=== PATIENT | female | born 1940 | race Caucasian/White ===

== ENCOUNTER → 2025-01-16 15:26 | Outpatient (BNVA) | payer MEDICARE, OTHER, SELFPAY | PROVIDERS: Visit Provider Podiatrist Foot & Ankle Surgery | DX: E11.40 Type 2 diabetes mellitus with diabetic neuropathy, unspecified (principal); L60.3 Nail dystrophy; I73.9 Peripheral vascular disease, unspecified; Z79.84 Long term (current) use of oral hypoglycemic drugs | CPT/HCPCS: 11721; 99203 ==

== ENCOUNTER 2025-05-11 11:26 | Emergency (ER) | payer MEDICARE, BC, SELFPAY ==
--- OUTSIDE RECORDS SUMMARY | 2025-05-11 11:37 | XMS_ITS | Clinical Summary ---
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 Name Role Phone Unavailable Primary Care Provider Unavailabl e Encounters Date Type Department Care Team Description 04/21/2025 Orders Only [facility] Admitting [address] [facility] [address] [place] [address] Zeinab Wang FNP Encounter for screening mammogram for malignant neoplasm of breast (Primary Dx) 04/17/2025 Orders Only [facility] [address] [facility] [address] [place] [address] Zeinab Wang FNP Encounter for screening mammogram for malignant neoplasm of breast (Primary Dx) from Last 3 Months Social History Tobacco Use Types Packs/Day Years Used Date Smoking Tobacco: Never Assessed Comments Unknown Sex and Gender Information Value Date Recorded Sex Assigned at Not on file Legal Sex Female 8:35 PM [employer] Gender Identity Not on file Sexual Orientation Not on file Plan of Treatment Health Maintenance Due Date Last Done Comments DTAP/TDAP/TD VACCINES (1 - Tdap) 1957 PNEUMOCOCCAL VACCINE 50+ YEARS (1 of 1 - PCV) 08/08/18 89 ZOSTER VACCINE (1 of 2) 1988 OSTEOPOROSIS SCREENING 2003 RSV VACCINE (60+ or ) (1 - 1-dose 75+ series) 2013 INFLUENZA VACCINE (#1) 2025
--- OUTSIDE RECORDS SUMMARY | 2025-05-11 11:37 | XMS_ITS | Data Portability ---
Author Organization [place] [facility] [place], ADMIN Address [address] [place] [address] Care Team Providers Care Cinder Pitman Name Role Phone [facility] Primary Care Provider [phone] Assessment Encounter Date Assessment Date Assessment LastModified by Organization Details LastModified Time 01/14/2025 01/14/2025 84-year-old isaiah joseph presents to clinic for hospital follow-up. Patient was admitted 12/16/2024 and discharged 12/20/2024. Patient was admitted with chief complaint of nausea, vomiting, generalized weakness and abdominal pain. Lab studies 12/17/2024 revealed alkaline phosphatase 127, AST 238, ALT 241, bilirubin total 5.3, albumin 3.1, lipase 59 CT abdomen/pelvis 12/17/2024: Suggestion of mild circumferential mucosal thickening within the transverse colon. This may be part due to lack of distention. Diverticulosis without diverticulitis. Sludge and/or stones within the dependent gallbladder. Suggestion of nodular thickening along the lateral aspect of the gallbladder wall. Indeterminate 5 mm low-density lesion within the left of the liver. This could potentially represent a cyst ERCP 12/17/2024: Erythematous nodule measuring approximately 10 to 12 mm were found in the second portion duodenum. CBD measures 7 to 9 mm. Filling defects were identified in the distal CBD consistent with choledocholithiasis versus pneumobilia. A total of 3 black stones were removed from the CBD. 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 Main pancreatic duct was not cannulated nor imaged Today patient reports loose stools since having her gallbladder removed. She reports multiple loose stools per day. She denies any treatment for her bowel movement. I advised patient to start Metamucil 1 tablespoon in 8 ounces water daily. She states overall she is feeling better after her CBD stent placement. She denies abdominal pain, nausea, vomiting. Will schedule ERCP with stent removal in 2 weeks. Will also order CMP, amylase and lipase. Impression: 1. Status post ERCP with CBD stent placement 12/17/2024 secondary to obstructive jaundice and choledocholithiasis 2. Duodenal nodule, pathology revealed peptic type surface changes and dilated lymphatics. Negative for dysplasia or malignancy 3. Status postcholecystectomy 12/19/[address] Nayak 4. Postcholecystectomy diarrhea 5. Other medical issues: Diabetes mellitus, hypertension, hyperlipidemia, thyroid cancer status post thyroidectomy Recommendations: 1. Schedule ERCP with CBD stent removal 2. Order CMP, amylase, lipase 3. Start metamucil 1 tbsp in 8oz water daily 4. Low FODMAP diet 5. Follow up in GI clinic 2 weeks post ERCP [email or web address] Not available 01/15/2025 09:21:10 02/14/2025 02/14/2025 84-year-old isaiah joseph presents to clinic for follow-up after ERCP with CBD stent removal. Patient reports she is doing well. She denies abdominal pain, nausea, vomiting, fever or chills. She did complete her postop antibiotics. She continues to report symptoms of postcholecystectomy diarrhea. She did not start Metamucil as previously discussed. I advised patient to start Metamucil 1 tablespoon in 8 ounces water daily or fiber tablets. Patient states she will call if she continues to have issues after starting Metamucil. Patient was admitted 12/16/2024 and discharged 12/20/2024. Patient was admitted with chief complaint of nausea, vomiting, generalized weakness and abdominal pain. Lab studies 12/17/2024 revealed alkaline phosphatase 127, AST 238, ALT 241, bilirubin total 5.3, albumin 3.1, lipase 59 CT abdomen/pelvis 12/17/2024: Suggestion of mild circumferential mucosal thickening within the transverse colon. This may be part due to lack of distention. Diverticulosis without diverticulitis. Sludge and/or stones within the dependent gallbladder. Suggestion of nodular thickening along the lateral aspect of the gallbladder wall. Indeterminate 5 mm low-density lesion within the left of the liver. This could potentially represent a cyst ERCP 12/17/2024: Erythematous nodule measuring approximately 10 to 12 mm were found in the second portion duodenum. CBD measures 7 to 9 mm. Filling defects were identified in the distal CBD consistent with choledocholithiasis versus pneumobilia. A total of 3 black stones were removed from the CBD. 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 Main pancreatic duct was not cannulated nor imaged Impression: 1. Status post ERCP with CBD stent placement 12/17/2024 and removal 01/30/25 secondary to obstructive jaundice and choledocholithiasis 2. Duodenal nodule, pathology revealed peptic type surface changes and dilated lymphatics. Negative for dysplasia or malignancy 3. Status postcholecystectomy 12/19/[address] Nayak 4. Postcholecystectomy diarrhea 5. Other medical issues: Diabetes mellitus, hypertension, hyperlipidemia, thyroid cancer status post thyroidectomy Recommendations: 1. Start metamucil 1 tbsp in 8oz water daily 2. Low FODMAP diet 3. Follow up and further recommendations based on clinical course [email or web address] Not available 02/14/2025 15:42:07 Plan of Treatment Reminders Order Date Submit Date Provider Last Modified By Organization Details Last Modified Time Details Appointments None recorded. Lab lipase, serum or plasma 2024 [facility] [place] [address] Lab, [address] [facility], [place], [address], 13:56:03 CMP, serum or plasma [address] Lab, [address] [facility], [place], [address], 5 13:56:03 amylase, serum or plasma [address] Lab, [address] [facility], [place], [address], 13:56:03 Referral None recorded. Procedures None recorded. Surgeries endoscopic retrograde cholangiopa ncreatograp hy; with removal of foreign body(s) or stent(s) from biliary/rodney creatic duct(s) (SURG) 2024 025 [email or web address] [id number] [facility], [address] [facility], [place], [address], 5 16:15:40 Imaging None recorded. Medication Orders Metamucil Fiber (aspartame) 3.4 gram oral powder packet 2024 025 [email or web address] [id number], [address], [place], [place], [id number], 5 14:57:31 Patient TargetsNo targets recorded. Patient InstructionsNo instructions recorded. Reason for Referral None Reported. Results Created Date Observation Date Name Description Value Unit Range Abnormal Flag Note LastModifiedBy Organization Detail LastModifiedTime 01/31/2001/30/2025 GLUCO SE LEVEL POC BEDSI DE glu POC bdside 187 mg/dL 65-90 [place]: [id number] [facility] (Lab)_do Not Use [address] [facility], [place], [address], 01/30/2025 11:56:50 02/01/20 25 01/30/2025 XR, chola ngiop ancre atogr am [facility] [address] [place] [address]- [phone] Patien t: MOOSE MAE [id number] : 939 Sex:Fe male Locati on: [facility]; 1070; 1 Orderi ng Physic kirsten: ANTWON WORKMAN MD Diagno stic Radiol ogy Access ion Exam Date/T eugene [id number] 0755 025 13:27 CDT Reason for Exam ercp;O ther (pleas e specif y) Report _No radiol ogical interp retati on for this examin ation. Please see provid ers surgic al proced ure or operat polly note for exam interp retati ons & report s in Cerner . If report assist ance is needed please call [facility] Medica l Record s Depart ment at [phone] for result s. Final Signed by: Salvatore Evans PACS Admini aleyda dumont Signed (Elect eliezer gray): 2024 07:41 am CDT Transc ribed DT/TM: 2024 07:41 am CDT Techni chiara Larry ts Fluoro scopy time (in minute s): 0 Fluoro scopy time (in second s): [address] [facility] (Radiology) [address] [place] [address], [place], [address], 02/03/2025 16:19:51 Result Notes Documentation Provider Name and Address Organization Details Recorded Time Xr, Cholangiopancreatogram : [facility] [address] [place] [address]- Patient: MOOSE MAE : 1940 Sex:Female Location: [facility]; [facility]; 1 Ordering Physician: ANTWON HEREDIA MD Diagnostic Radiology Accession Exam Date/Time [id number] 01/30/2025 13:27 CDT Reason for Exam ercp;Other (please specify) Report _No radiological interpretation for this examination. Please see providers surgical procedure or operative note for exam interpretations & reports in Cerner. If report assistance is needed please call [facility] Medical Records Department at [phone] for results. Final Signed by: Beverly Evans rough planer tender Signed (Electronic Signature): 01/31/2025 07:41 am CDT Transcribed DT/TM: 01/31/2025 07:41 am CDT Technical Comments Fluoroscopy time (in minutes): 0 Fluoroscopy time (in seconds): 7 Antwon Heredia MD [address] [facility], [place], [address], [facility] [place] 02/03/2025 16:19:51 Problems Name Problem SNOMED Code Status Onset Date Resolution Date Notes Provider Name and Address Organization Details Recorded Time Common bile duct calculus 193340082 Active 2024 TASHA BRAR [address] [facility], [place], [address], [facility] [place] 16:11:33 Postcholecyste ctomy diarrhea 61462917 Active 2024 TASHA BRAR [address] [facility], [place], [address], [facility] [place] 09:21:28 Problem Notes None recorded. Procedures Surgical History Date Name Laterality Status Provider Name and Address Organization Details Recorded Time tonsillectomy completed Corie Gabriel [address] 01/14/2025 16:12:53 thyroidectomy completed Corie Gabriel [address] 01/14/2025 16:13:05 Imaging Results None recorded. Procedure Notes None recorded. Medical Equipment None Reported. Allergies No known drug allergies Medications Name Sig Start Date Stop Date Status Note LastModified by Organization Details LastModified Time losartan 50 mg tablet Take 1 tablet every day by oral route. active Not Available Not Available No t Available metformin 500 mg tablet Take 1 tablet twice a day by oral route. active Not Available Not Available No t Available meclizine 12.5 mg tablet Take 2 tablets 3 times a day by oral route. active Not Available Not Available No t Available levothyroxin e 75 mcg tablet Take 1 tablet every day by oral route. active Not Available Not Available No t Available hydrocodone 7.5 mg-acetamino phen 325 mg tablet Take 1 tablet every 6 hours by oral route. 01/14 completed Not Available Not Available Not Available omeprazole 01/14 completed Not Available Not Available Not Available metformin 01/14 completed Not Available Not Available Not Available omeprazole 20 mg tablet,delay ed release Take by oral route. active Not Available Not Available No t Available Metamucil Fiber (aspartame) 3.4 gram oral powder packet Take 1 packet every day by oral route as directed . 02/14 completed Not Available Not Available Not Available Vitals Date Recorded Body height Body mass index (BMI) Body weight Oxygen saturation Heart rate Systolic And Diastolic Provider Name and Address Organization Details Last Updated DateTime 157.48 cm 27.4 kg/m2 14155.8 6 g 98 % 91 /min 88/63 mm[Hg] Corie Gabriel [address] 16:11:00 Date Recorded Body height Body mass index (BMI) Body weight Oxygen saturation Heart rate Systolic And Diastolic Provider Name and Address Organization Details Last Updated DateTime 157.48 cm 26.5 kg/m2 88199.8 9 g 97 % 77 /min 140/75 mm[Hg] Pat Solares RN [address] 14:57:17 Social History Question Answer Notes LastModified by OrganKrugleat ion Details LastModified Time Tobacco Smoking Status Never Smoker Corie Gabriel [facility], [address] 01/14/2025 16:12:41 What Is Your Level Of Caffeine Consumption? None Information not available 01/14/2025 What Was The Date Of Your Most Recent Tobacco Screening? 02/14/2025 [email or web address] Information not available 02/14/2025 Sex: Unknown Functional Status Question Answer Note LastModified by Organizat ion Details LastModified Time Do you use any illicit or recreational drugs? No Information not available 01/14/2025 What is your level of alcohol consumption? None Information not available 01/14/2025 Mental Status None recorded. Family History Nothing Reported. Medical History No medical history recorded. Gynecological HistoryNo gynecological history recorded. Obstetrics History GPAL:G 0 P 0 0 0 0 Past Encounters Encounter ID Performer Location Encounter Start Date Encounter Closed Date Diagnosis/Indication Diagnosis SNOMED-CT Code Diagnosis ICD10 Code Diagnosis IMO Codes Diagnosis Note [id number] TASHA BRAR PBPM[facility]RPS [facility] [address] [facility] [place], [place] [address] 01/14/2025 15:23:51 01/20/2025 08:48:01 Common bile duct calculus 534675897 K80.50 10425 Postcholec ystectomy diarrhea 15355840 K91.89 R19.7 9082 [id number] TASHA BRAR PBPM_RPS [facility] [address] [place] [address] 02/14/2025 14:32:48 02/18/2025 12:10:17 Postcholecystectomy diarrhea 39324728 K91.89 R19.7 9082 Common vasquez e duct calculus 207484656 K80.50 18034 Health Concerns Section Related Observation LastModified by Organization Detai ls LastModified Time None Recorded Concern Status LastModified by Organization Details LastModified Time None Recorded Advance Directives Directive None Recorded Payers Insurance Date Sequence Insurance Name Policy Number Policy Ayon Covered Member ID Ayon Member ID Guarantor Name 02/11/2025 1 [place] Moose Mae [id number] Moose Mae 02/18/2025 2 [employer] SU[employer]LEMENTAL - [employer] (MEDICARE SUPPLEMENT) PLAN G Moose Mae [id number] Moose Mae Notes Date Note Type Note Provider Name and Address Organization Details Recorded Time 5 text/html 84-year-old female presents to clinic for hospital follow-up. Patient was admitted 12/16/2024 and discharged 12/20/2024. Patient was admitted with chief complaint of nausea, vomiting, generalized weakness and abdominal pain. Lab studies 12/17/2024 revealed alkaline phosphatase 127, AST 238, ALT 241, bilirubin total 5.3, albumin 3.1, lipase 59 CT abdomen/pelvis 12/17/2024: Suggestion of mild circumferential mucosal thickening within the transverse colon. This may be part due to lack of distention. Diverticulosis without diverticulitis. Sludge and/or stones within the dependent gallbladder. Suggestion of nodular thickening along the lateral aspect of the gallbladder wall. Indeterminate 5 mm low-density lesion within the left of the liver. This could potentially represent a cystERCP 12/17/2024: Erythematous nodule measuring approximately 10 to 12 mm were found in the second portion duodenum. CBD measures 7 to 9 mm. Filling defects were identified in the distal CBD consistent with choledocholithiasis versus pneumobilia. A total of 3 black stones were removed from the CBD. 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 Main pancreatic duct was not cannulated nor imaged Today patient reports loose stools since having her gallbladder removed. She reports multiple loose stools per day. She denies any treatment for her bowel movement. I advised patient to start Metamucil 1 tablespoon in 8 ounces water daily. She states overall she is feeling better after her CBD stent placement. She denies abdominal pain, nausea, vomiting. Will schedule ERCP with stent removal in 2 weeks. Will also order CMP, amylase and lipase.Impression:1. Status post ERCP with CBD stent placement 12/17/2024 secondary to obstructive jaundice and choledocholithiasis2. Duodenal nodule, pathology revealed peptic type surface changes and dilated lymphatics. Negative for dysplasia or malignancy3. Status postcholecystectomy 12/19/[address] Nayak4. Postcholecystectomy diarrhea5. Other medical issues: Diabetes mellitus, hypertension, hyperlipidemia, thyroid cancer status post thyroidectomy Recommendations:1. Schedule ERCP with CBD stent removal2. Order CMP, amylase, lipase3. Start metamucil 1 tbsp in 8oz water daily4. Low FODMAP diet5. Follow up in GI clinic 2 weeks post ERCP TASHA BRAR [facility] [place], [address], [place] [facility] [place] 01/15/2025 09:22:29 5 text/html 84-year-old female presents to clinic for follow-up after ERCP with CBD stent removal. Patient reports she is doing well. She denies abdominal pain, nausea, vomiting, fever or chills. She did complete her postop antibiotics. She continues to report symptoms of postcholecystectomy diarrhea. She did not start Metamucil as previously discussed. I advised patient to start Metamucil 1 tablespoon in 8 ounces water daily or fiber tablets. Patient states she will call if she continues to have issues after starting Metamucil. Patient was admitted 12/16/2024 and discharged 12/20/2024. Patient was admitted with chief complaint of nausea, vomiting, generalized weakness and abdominal pain. Lab studies 12/17/2024 revealed alkaline phosphatase 127, AST 238, ALT 241, bilirubin total 5.3, albumin 3.1, lipase 59 CT abdomen/pelvis 12/17/2024: Suggestion of mild circumferential mucosal thickening within the transverse colon. This may be part due to lack of distention. Diverticulosis without diverticulitis. Sludge and/or stones within the dependent gallbladder. Suggestion of nodular thickening along the lateral aspect of the gallbladder wall. Indeterminate 5 mm low-density lesion within the left of the liver. This could potentially represent a cystERCP 12/17/2024: Erythematous nodule measuring approximately 10 to 12 mm were found in the second portion duodenum. CBD measures 7 to 9 mm. Filling defects were identified in the distal CBD consistent with choledocholithiasis versus pneumobilia. A total of 3 black stones were removed from the CBD. 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 Main pancreatic duct was not cannulated nor imaged Impression:1. Status post ERCP with CBD stent placement 12/17/2024 and removal 01/30/25 secondary to obstructive jaundice and choledocholithiasis2. Duodenal nodule, pathology revealed peptic type surface changes and dilated lymphatics. Negative for dysplasia or malignancy3. Status postcholecystectomy 12/19/[address] Nayak4. Postcholecystectomy diarrhea5. Other medical issues: Diabetes mellitus, hypertension, hyperlipidemia, thyroid cancer status post thyroidectomy Recommendations:1. Start metamucil 1 tbsp in 8oz water daily2. Low FODMAP diet3. Follow up and further recommendations based on clinical course TASHA BRAR [address] [place], [address], [facility] [place] 02/14/2025 15:42:49 OBGyn Episode No OBEpisode recorded.
--- OUTSIDE RECORDS SUMMARY | 2025-05-11 11:38 | XMS_ITS | Continuity of Care Document ---
Author Organization [place] - [facility] [place], [facility] Address [address] [facility] [place] [address] Care Team Providers Care Fisher Eel Spear Name Role Phone [facility] - [place] Primary Care Provider Assessment Encounter Date Assessment Date Assessment LastModified by Organization Details LastModified Time 02/14/2025 02/14/2025 84-year-old isaiah joseph presents to [...] and further recommendations based on clinical course Not available 02/14/2025 15:42:07 Plan of Treatment Reminders Order Date Submit Date Provider Last Modified By Organization Details Last Modified Time Details Appointments None record ed. Lab None record ed. Referral None record ed. Procedures None record ed. Surgeries None record ed. Imaging None record ed. Medication Orders None record ed. Patient TargetsNo targets recorded. Patient InstructionsNo instructions recorded. Reason for Referral None Reported. Results Created Date Observation Date Name Description Value Unit Range Abnormal Flag Note LastModifiedBy Organization Detail LastModifiedTime 01/31/20 25 01/30/2025 GLUCO SE LEVEL POC BEDSI DE glu POC bdside 187 mg/dL 65-90 high Opera tor ID: [id number] Not Available [facility] (Lab)_do Not Use [facility], [place], [address], 01/30/2025 11:56:50 02/01/20 25 01/30/2025 XR, chola ngiop ancre atogr am [facility] al Medica [facility] [address] [place] [address]- [phone] Patien t: HENRIETTA MAE MRN:[id number] : [id number] Sex:Fe male Locati on: [facility]; 1070; 1 Orderi ng Physic kirsten: NEAL WORKMAN MD Diagno stic Radiol ogy Access [...] report assist ance is needed please call [facility] Medica l Record s Depart ment at for result s. Final Signed by: Salvatore Evans PACS Admini aleyda dumont Signed (Elect eliezer Signat ure): 2024 07:41 am CDT Transc ribed DT/TM: 2024 07:41 am CDT Techni chiara Commen ts Fluoro scopy time (in minute s): 0 Fluoro scopy time (in second s): 7 [facility] (Radiology) [address], [place], [address], 02/03/2025 16:19:51 Result Notes None recorded. Problems Name Problem SNOMED Code Status Onset Date Resolution Date Notes Provider Name and Address Organization Details Recorded Time Common bile duct calculus 337051416 Active 20[address]AR [address] [place] [address], [phone], [facility] [place] - [facility] [place] 5 16:11:33 Postcholecyste ctomy diarrhea 31375610 Active 2024 TASHA BRAR [address] [place] [address], [phone], [facility] [place] - [facility] [place] 09:21:28 Problem Notes None recorded. Procedures Surgical History Date Name Laterality Status Provider Name and Address Organization Details Recorded Time tonsillectomy completed Corie Gabriel [place] - [facility] [place] 01/14/2025 16:12:53 thyroidectomy completed Corie SOUZA - [facility] [place] 01/14/2025 16:13:05 Imaging Results None recorded. Procedure [...] Last Updated DateTime 157.48 cm 26.5 kg/m2 58954.8 9 g 97 % 77 /min 140/75 mm[Hg] Pat Solares RN [address] 14:57:17 Social History Question Answer Notes LastModified by Powered Now Details LastModified Time Tobacco Smoking Status Never Smoker Corie valdez [place] [facility] [place] 01/14/2025 16:12:41 What Is Your Level Of Caffeine Consumption? None [email or web address] Information not available 01/14/2025 What Was The Date Of Your Most Recent Tobacco Screening? 02/14/2025 [email or web address] Information not available 02/14/2025 Sex: Unknown Functional Status Question Answer Note LastModified by Powered Now Details LastModified Time Do you use any [...] ICD10 Code Diagnosis IMO Codes Diagnosis Note [id number] TASHA BRAR [facility] [address] [facility] [place] [address] 01/14/2025 15:23:51 01/20/2025 08:48:01 Common bile duct calculus 701227172 K80.50 37718 Postcholec ystectomy diarrhea 70639024 K91.89 R19.7 9082 [id number] TASHA BRAR [facility] [address] [facility] [place] [address] 02/14/2025 14:32:48 02/18/2025 12:10:17 Postcholecystectomy diarrhea 02152637 K91.89 R19.7 9082 Common vasquez e duct calculus 020081947 K80.50 07508 Health Concerns Section Related Observation LastModified by Organization Detai ls LastModified Time None Recorded Concern Status LastModified by Organization Details LastModified Time None Recorded Payers Encounter Date Sequence Insurance Name Policy Number Policy Ayon Covered Member ID Ayon Member ID Guarantor Name 02/14/2025 1 [place] Henrietta Mae [id number] Henrietta Mae 02/14/2025 2 [employer] SUPPLEMENTAL - [employer] (MEDICARE SUPPLEMENT) PLAN G Henrietta Mae [id number] Henrietta Mae Notes Date Note Type Note Provider [...] based on clinical course TASHA BRAR [address] [facility], [place], [address], [facility] [place] - [facility] [place] 02/14/2025 15:42:49 OBGyn Episode No OBEpisode recorded.
--- OUTSIDE RECORDS SUMMARY | 2025-05-11 11:38 | XMS_ITS | Clinical Summary ---
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 Follow up as needed. Social History Tobacco Use Types Packs/Day Years Used Date Smoking Tobacco: Never Smokeless Tobacco: Never Tobacco Cessation:Counseling Given: Not Answered PHQ-2 Answer Date Recorded PHQ-2 Score 0 12/31/2024 Comments Unknown Sex and Gender Information Value Date Recorded Sex Assigned at Not on file Legal Sex Female 12:58 PM CDT Gender Identity Not on file Sexual Orientation Not on file Plan of Treatment Health Maintenance Due Date Last Done Comments Foot Exam 1938 Hemoglobin A1C 1938 Medicare Annual Wellness 1938 Ophthalmology Exam 1948 Urine Microalbumin 1948 Td, Tdap Vaccines Adult 1957 Mammogram 1978 Colonoscopy 1983 Pneumococcal Vaccine: 50+ Ye ars (1 of 1 - PCV) 1988 Shingrix (ZOSTER RECOMBINANT ) (1 of 2) 1988 Bone Density Scan (DXA Scan) 2003 RSV 60+ (1 - 1-dose 75+ series) 2013 Influenza Vaccination (#1) 2025 HIB Vaccines Aged Out No longer eligi ble based on patient's age to complete this topic HPV Vaccines Aged Out No longer eligi ble based on patient's age to complete this topic Hepatitis A Vaccines Aged Out No long er eligible based on patient's age to complete this topic Hepatitis B Vaccines Aged Out No long er eligible based on patient's age to complete this topic IPV Vaccines Aged Out No longer eligi ble based on patient's age to complete this topic Meningococcal Vaccines Aged Out No lo nger eligible based on patient's age to complete this topic RSV Mab Nirsevimab (Beyfortu s) <20 months Aged Out No longer eligible b ased on patient's age to complete this topic Rotavirus Vaccines Aged Out No longer eligible based on patient's age to complete this topic Insurance MEDICARE CIGNA MCR SUPPLEMENT
[2025-05-11 11:40] VITALS: BP 133/61; PULSE 99; RESP 18; TEMP 36.8; O2SAT 96; BMI 26.5
--- NOTE | 2025-05-11 11:44 | W.ED.NAVMDI ---
HPI - Nausea/Vomiting/Diarrhea General: Chief complaint: Nausea/Vomiting/Diarrhea Stated complaint: diaherria, vomitting, high BS Time Seen by Provider: 05/11/25 11:38 Source: patient Mode of arrival: ambulatory Limitations: no limitations History of Present Illness: 84-year-old female states she has not felt well since Monday. States she has had nausea along with multiple episodes of liquid diarrhea. She had some generalized weakness states she feels dehydrated. Denies any vomiting she denies any abdominal pain denies any fevers denies any worse or improving factors. Related Data Home Medications ?Medication ?Instructions ?Recorded ?Confirmed levothyroxine 75 mcg tablet 75 mcg PO DAILY 01/16/25 01/16/25 (Levo-T) losartan 50 mg tablet 50 mg PO DAILY 01/16/25 01/16/25 meclizine 12.5 mg tablet 12.5 mg PO TID PRN 01/16/25 01/16/25 metformin 500 mg tablet 500 mg PO BID 01/16/25 01/16/25 omeprazole 20 mg capsule,delayed 20 mg PO DAILY 01/16/25 01/16/25 release Previous Rx's ?Medication ?Instructions ?Recorded ondansetron 4 mg disintegrating 4 mg PO Q6H PRN nausea and 05/11/25 tablet vomiting #14 tabs Allergies Allergy/AdvReac Type Severity Reaction Status Date / Time No Known Allergies Allergy Unverified 01/16/25 15:53 Review of Systems GI: Reports: diarrhea [facility] ED PFSH: Social History Smoking and tobacco/nicotine status: never used tobacco/nicotine Physical Exam Const: COMMON NORMALS: no acute distress, patient oriented x3 and healthy appearing HENMT: COMMON NORMALS: normocephalic and atraumatic HEAD & SCALP: normocephalic and atraumatic Neck/C-Spine: COMMON NORMALS: full ROM and supple Chest: COMMONS NORMALS: normal inspection of the chest and normal palpation of entire chest wall Resp: COMMON NORMALS: normal respiratory effort, No retractions, No use of accessory muscles and clear to auscultation bilaterally AUSCULTATION: clear to auscultation bilaterally Cardio: COMMON NORMALS: regular rate, regular rhythm and No murmurs present (Cardio) RATE: regular rate RHYTHM: regular rhythm GI: COMMON NORMALS: Normal to inspection, nondistended, normoactive bowel sounds present, Soft to palpation, non-tender and no masses PALPATION: Yes Soft to palpation Extremity: COMMON NORMALS: normal to inspection and full ROM Neuro: COMMON NORMALS: patient oriented x3, moves all extremities and no focal motor deficits Psych: COMMON NORMALS: mental status grossly normal, Normal thought process present and cooperative THOUGHT PROCESS: Normal thought process present Skin: COMMON NORMALS: no rashes or lesions noted and no wounds GENERAL SKIN EXAM: no rashes or lesions noted Course Vital Signs: Vital signs: Vital Signs Temperature 98.3 F 05/11/25 11:40 Pulse Rate 80 05/11/25 12:22 Respiratory Rate 18 05/11/25 11:40 Blood Pressure 116/62 05/11/25 12:22 Pulse Oximetry 100 05/11/25 12:22 Oxygen Delivery Me thod Room Air 05/11/25 12:22 MDM - Nausea/Vomiting/Diarrhea Medical Decision Making Patient presents for diarrhea along with some weakness differential is infectious diarrhea, viral gastroenteritis. Patient's been well-appearing here afebrile she feels much improved after Zofran and fluids. She was not able to give a stool sample here white count here is normal is likely viral gastroenteritis. Will prescribe Zofran for home she is stable for discharge at this time follow-up PCP return if worsening. Medical Records I reviewed the patient's medical records. Lab Data I reviewed the patient's lab results. 05/11/25 11:51 05/11/25 11:51 Laboratory Results WBC 15.01 10^3/uL (3.29-11.43) H 05/11/25 11:51 RBC 4.89 10^6/uL (3.85-5.65) 05/11/25 11:51 Hgb 14.40 g/dL (11.27-16.99) 05/11/25 11:51 Hct 43.8 % (36-47) 05/11/25 11:51 MCV 89.6 fl (85-98) 05/11/25 11:51 MCH 29.4 pg (27-33) 05/11/25 11:51 MCHC 32.9 g/dL (30-55) 05/11/25 11:51 RDW 14.2 % (12.1-15.1) 05/11/25 11:51 Plt Count 254 10^3/cmm (157-399) 05/11/25 11:51 MPV 9.9 fL (7.4-10.4) 05/11/25 11:51 Neut % (Auto) 85.3 % 05/11/25 11:51 Lymph % (Auto) 9.9 % 05/11/25 11:51 Bucks % (Auto) 3.8 % 05/11/25 11:51 Eos % (Auto) 0.1 % 05/11/25 11:51 Baso % (Auto) 0.4 % 05/11/25 11:51 Neut # (Auto) 12.80 10^3/uL (1.8-7.7) H 05/11/25 11:51 Lymph # (Auto) 1.5 10^3/uL (0.8-4.8) 05/11/25 11:51 Bucks # (Auto) 0.6 10^3/uL (0.2-0.9) 05/11/25 11:51 Eos # (Auto) 0.0 10^3/uL (0.0-0.8) 05/11/25 11:51 Baso # (Auto) 0.1 10^3/uL (0.0-0.1) 05/11/25 11:51 Nucleated RBC % (auto) 0 % 05/11/25 11:51 Nucleated RBCs # 0.0 /100WBC 05/11/25 11:51 Sodium 139 mmol/L (136-145) 05/11/25 11:51 Potassium 3.3 mmol/L (3.5-5.1) L 05/11/25 11:51 Chloride 104 mmol/L (98-107) 05/11/25 11:51 Carbon Dioxide 18 mmol/L (22-29) L 05/11/25 11:51 Anion Gap 20.3 (5-19) H 05/11/25 11:51 BUN 27 mg/dL (8-23) H 05/11/25 11:51 Creatinine 1.5 mg/dL (0.5-0.9) H 05/11/25 11:51 GFR Calculation Not Reportable 05/11/25 11:51 Glucose 312 mg/dL (65-115) H 05/11/25 11:51 POC Glucose 271 mg/dL (70-110) H 05/11/25 11:43 Calculated Osmolality 305 mOsm/kg (285-295) H 05/11/25 11:51 Calcium 8.9 mg/dL (8.5-10.5) 05/11/25 11:51 Total Bilirubin 0.5 mg/dL (0.15-1.2) 05/11/25 11:51 AST 10 U/L (0-32) 05/11/25 11:51 ALT 9 U/L (0-33) 05/11/25 11:51 Alkaline Phosphatase 94 U/L (35-105) 05/11/25 11:51 Total Protein 7.5 g/dL (6.6-8.7) 05/11/25 11:51 Albumin 4.2 g/dL (3.5-5.2) 05/11/25 11:51 Globulin 3.3 g/dL (1.3-4.6) 05/11/25 11:51 Lipase 23 U/L (13-60) 05/11/25 11:51 No radiology studies performed this visit Discharge Plan Discharge Patient Disposition: Home Clinical Impression: Diarrhea Condition: Stable Prescriptions: New ondansetron 4 mg tablet,disintegrating 4 mg PO Q6H PRN (Reason: nausea and vomiting) Qty: 14 0RF No Action losartan 50 mg tablet 50 mg PO DAILY metformin 500 mg tablet 500 mg PO BID meclizine 12.5 mg tablet 12.5 mg PO TID PRN levothyroxine [Levo-T] 75 mcg tablet 75 mcg PO DAILY omeprazole 20 mg capsule,delayed release(DR/EC) 20 mg PO DAILY Discharge Orders: Discharge ED (Routine); Ordered 05/11/25 Ordered By: Vesta Jose Discharge Diet: Advance as tolerated Discharge Activity: Resume usual activity Patient Instructions: Acute Diarrhea (ED) Print Language: Arabic Coding Level of Care Code ED County Agent for Sera Jimenez
[2025-05-11] MEDS: ondansetron 2 mg/ML SDV 2 mL 4 MG IVP (11:48)
[2025-05-11 11:54] LABS: Hematocrit 43.8 % (36-47); Hemoglobin 14.40 g/dL (11.27-16.99); Mean Corpuscular HGB Conc 32.9 g/dL (30-55); Mean Corpuscular Hemoglobin 29.4 pg (27-33); Mean Corpuscular Volume 89.6 fl (85-98); Nucleated Red Blood Cells % 0 %; Platelet Count 254 10^3/cmm (157-399); Red Blood Count 4.89 10^6/uL (3.85-5.65); White Blood Count 15.01 10^3/uL (3.29-11.43)
[2025-05-11 12:16] LABS: Alanine Aminotransferase 9 U/L (0-33); Albumin Level 4.2 g/dL (3.5-5.2); Alkaline Phosphatase 94 U/L (35-105); Anion Gap 20.3 (5-19); Aspartate Amino Transferase 10 U/L (0-32); Blood Urea Nitrogen 27 mg/dL (8-23); Calcium 8.9 mg/dL (8.5-10.5); Carbon Dioxide 18 mmol/L (22-29); Chloride 104 mmol/L (98-107); Globulin 3.3 g/dL (1.3-4.6); Glucose 312 mg/dL (65-115); Lipase 23 U/L (13-60); Osmolality Calculated 305 mOsm/kg (285-295); Potassium 3.3 mmol/L (3.5-5.1); Sodium 139 mmol/L (136-145); Total Protein 7.5 g/dL (6.6-8.7)
[2025-05-11 12:22] VITALS: BP 116/62; PULSE 80; O2SAT 100
== END 2025-05-11 13:17 | disposition home or self-care (01) ==
PROVIDERS: Emergency Provider Emergency Medicine
DX: R19.7 Diarrhea, unspecified (principal); Z79.84 Long term (current) use of oral hypoglycemic drugs
CPT/HCPCS: 36416; 80053; 82962; 83690; 85025; 96361; 96374; 99284; J2405; J7030; J9999

== ENCOUNTER → 2025-05-27 13:23 | Outpatient (BNVA) | payer MEDICARE, SELFPAY | PROVIDERS: Visit Provider Podiatrist Foot & Ankle Surgery | DX: E11.8 Type 2 diabetes mellitus with unspecified complications (principal); L60.3 Nail dystrophy; E11.40 Type 2 diabetes mellitus with diabetic neuropathy, unspecified; I73.9 Peripheral vascular disease, unspecified; Z79.84 Long term (current) use of oral hypoglycemic drugs | CPT/HCPCS: 11721 ==